=== PATIENT | female | born 1965 | race Caucasian/White ===

== ENCOUNTER 2019-11-24 13:40 | Emergency (ER) | payer OTHER, SELFPAY ==
[2019-11-24 13:55] VITALS: BP 162/94; PULSE 69; RESP 16; TEMP 37.3; O2SAT 100
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
== END 2019-11-24 14:25 | disposition home or self-care (01) ==
PROVIDERS: Emergency Provider Nurse Practitioner Family
DX: M54.5 Low back pain (principal); E78.5 Hyperlipidemia, unspecified; I10 Essential (primary) hypertension
CPT/HCPCS: 99213; G0463

== ENCOUNTER 2023-12-26 17:12 | Emergency (ER) | payer OTHER, SELFPAY ==
--- NOTE | ~2023-12-26 | XR_ITS ---
XR chest 2V DATE: 12/26/2023 17:49 INDICATION: Shortness of breath, increased with exertion TECHNIQUE: 2 views COMPARISON: None FINDINGS: There is prominent opacification of the lower right hemithorax, likely due to a combination of infiltrate, atelectasis and pleural effusion, possibly some elevation of the right diaphragm. The right hilum appears prominent; right hilar mass lesion or adenopathy is not excluded. Consider CT th orax with IV contrast material for further evaluation. The left lung is clear. No left hilar enlargement. There is slight left pleural effusion. Normal heart size. Aortic arch calcification, minimal aortic unfolding. IMPRESSION: Extensive opacification of the lower right hemithorax, likely due to a combination of inf iltrate, atelectasis and/or pleural effusion, possible elevated right diaphragm. CT thorax with IV contrast material is recommended to evaluate for possible right hilar mass lesion o r lymphadenopathy. Reviewed, dictated and finalized at location B. IMPRESSION: Extensive opacification of the lower right hemithorax, likely due t o a combination of infiltrate, atelectasis and/or pleural effusion, possible el evated right diaphragm. CT thorax with IV contrast material is recommended to evaluate for possible rig ht hilar mass lesion or lymphadenopathy.
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
[2023-12-26 17:26] VITALS: BP 156/79; PULSE 96; RESP 16; TEMP 38.1; O2SAT 96
== END 2023-12-26 18:25 | disposition left against medical advice (07) ==
PROVIDERS: Emergency Provider Nurse Practitioner Family
DX: R06.02 Shortness of breath (principal); R10.9 Unspecified abdominal pain; E78.5 Hyperlipidemia, unspecified; I10 Essential (primary) hypertension
CPT/HCPCS: 71046; 81003; 87086; 87088; 99213; G0463